=== PATIENT | female | born 1990 | race Hispanic/Latino ===

== ENCOUNTER 2021-01-04 16:57 | Emergency (ER) | payer OTHER ==
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
[2021-01-04 17:43] LABS: Urine Blood 3+ (Negative); Urine Glucose Negative (Negative); Urine Protein Negative (Negative); Urine Specific Gravity >=1.030 (1.005-1.030)
--- NOTE | 2021-01-04 17:45 | EDPHYS ---
Physician Documentation [facility] Name: Deysi Pompa Age: 30 yrs Sex: Female : 1990 Arrival Date: 01/04/2021 Time: 17:02 Bed 14 Private MD: ED Physician Filipe Dang HPI: 01/04 17:30 This 30 yrs old Female presents to ER via EMS with complaints of Vaginal nidia Bleeding. 17:30 The patient presents with a possible exposure to a sexually transmitted disease, nidia vaginal bleeding that is light. Onset: The symptoms/episode began/occurred 3 day(s) ago. Modifying factors: The symptoms are alleviated by nothing, the symptoms are aggravated by nothing. Associated signs and symptoms: Pertinent positives: vaginal bleeding. Severity of symptoms: At their worst the symptoms were mild, in the emergency department the symptoms are unchanged. The patient is sexually active, reportedly has a single partner. The patient has not experienced similar symptoms in the past. 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 Flu vaccine is not up to date. - Social history:: Smoking status: Patient reports the use of cigarette tobacco products, smokes one-half pack cigarettes per day. - Family history:: not pertinent. ROS: 17:30 Constitutional: Negative for fever, chills, and weight loss, Eyes: Negative for injury, nidia pain, redness, and discharge, ENT: Negative for injury, pain, and discharge, Neck: Negative for injury, pain, and swelling, Cardiovascular: Negative for chest pain, palpitations, and edema, Respiratory: Negative for shortness of breath, cough, wheezing, and pleuritic chest pain, Abdomen/GI: Negative for abdominal pain, nausea, vomiting, diarrhea, and constipation, Back: Negative for injury and pain, MS/Extremity: Negative for injury and deformity, Skin: Negative for injury, rash, and discoloration, Neuro: Negative for headache, weakness, numbness, tingling, and seizure, Psych: Negative for depression, anxiety, suicide ideation, homicidal ideation, and hallucinations, Allergy/Immunology: Negative for hives, rash, and allergies, Endocrine: Negative for neck swelling, polydipsia, polyuria, polyphagia, and marked weight changes, Hematologic/Lymphatic: Negative for swollen nodes, abnormal bleeding, and unusual bruising. 17:30 : Positive for pelvic pain, vaginal bleeding. Exam: 17:30 Constitutional: This is a well developed, well nourished patient who is awake, alert, nidia and in no acute distress. Head/Face: Normocephalic, atraumatic. Eyes: Pupils equal round and reactive to light, extra-ocular motions intact. Lids and lashes normal. Conjunctiva and sclera are non-icteric and not injected. Cornea within normal limits. Periorbital areas with no swelling, redness, or edema. ENT: Nares patent. No nasal discharge, no septal abnormalities noted. Tympanic membranes are normal and external auditory canals are clear. Oropharynx with no redness, swelling, or masses, exudates, or evidence of obstruction, uvula midline. Mucous membranes moist. Neck: Trachea midline, no thyromegaly or masses palpated, and no cervical lymphadenopathy. Supple, full range of motion without nuchal rigidity, or vertebral point tenderness. No Meningismus. Chest/axilla: Normal chest wall appearance and motion. Nontender with no deformity. No lesions are appreciated. Cardiovascular: Regular rate and rhythm with a normal S1 and S2. No gallops, murmurs, or rubs. Normal PMI, no JVD. No pulse deficits. Respiratory: Lungs have equal breath sounds bilaterally, clear to auscultation and percussion. No rales, rhonchi or wheezes noted. No increased work of breathing, no retractions or nasal flaring. Abdomen/GI: Soft, non-tender, with normal bowel sounds. No distension or tympany. No guarding or rebound. No evidence of tenderness throughout. Back: No spinal tenderness. No costovertebral tenderness. Full range of motion. Skin: Warm, dry with normal turgor. Normal color with no rashes, no lesions, and no evidence of cellulitis. MS/ Extremity: Pulses equal, no cyanosis. Neurovascular intact. Full, normal range of motion. Neuro: Awake and alert, GCS 15, oriented to person, place, time, and situation. Cranial nerves II-XII grossly intact. Motor strength 5/5 in all extremities. Sensory grossly intact. Cerebellar exam normal. Normal gait. Psych: Awake, alert, with orientation to person, place and time. Behavior, mood, and affect are within normal limits. Vital Signs: 17:03 Pulse 97; Resp 18; Temp 98.2(TE); Pulse Ox 97% on R/A; Weight 70.31 kg; Height 5 ft. 2 ca1 in. (157.48 cm); Pain 7/10; 17:05 BP 107 / 73; ca1 17:51 BP 111 / 86; Pulse 89; Resp 16 S; Pulse Ox 98% on R/A; ca1 17:03 Body Mass Index 28.35 (70.31 kg, 157.48 cm) ca1 MDM: 17:04 Patient medically screened. nidia 17:38 Differential diagnosis: dysmenorrhea, menometrorrhagia, ovarian cyst, pelvic nidia inflammatory disease, uterine fibroids, urinary tract infection. Data reviewed: vital signs, nurses notes, lab test result(s), urinalysis. Data interpreted: athletic monitor: not applicable for this patient encounter. rate is 97 beats/min, Pulse oximetry: on room air is 97 %. Counseling: I had a detailed discussion with the patient and/or guardian regarding: the historical points, exam findings, and any diagnostic results supporting the discharge/admit diagnosis, the need for outpatient follow up, for definitive care, an OB/Gyne specialist. 01/04 17:43 Order name: Urine Dipstick-Ancillary; Complete Time: 17:49 EDWI 01/04 17:46 Order name: Urine --Ancillary (enter results) eb 01/04 17:26 Order name: Urine Dipstick-Ancillary (obtain specimen); Complete Time: 17:29 nidia 01/04 17:26 Order name: Urine Test (obtain specimen); Complete Time: 17:43 [facility] Administered Medications: 17:31 Drug: Rocephin (cefTRIAXone) 1 grams Route: IM; Site: right gluteus; ca1 17:52 Follow up: Response: No adverse reaction ca1 17:35 Drug: Zithromax (azithromycin) 1 grams Route: PO; ca1 17:52 Follow up: Response: No adverse reaction ca1 17:37 Drug: metroNIDAZOLE 2 grams Route: PO; ca1 17:52 Follow up: Response: No adverse reaction ca1 17:47 Drug: [place] (HYDROcodone-acetaminophen) 10 mg-325 mg 1 tabs {Note: rass 0.} Route: PO; ca1 17:52 Follow up: Response: Medication administered at discharge.; RASS: Alert and Calm (0) ca1 Disposition: 01/04/21 17:44 Discharged to Home. Impression: Other abnormal uterine and vaginal bleeding - fear od std exposure. - Condition is Stable. - Discharge Instructions: Dysmenorrhea, Menorrhagia, Menorrhagia, [id number]. - Prescriptions for Ibuprofen 600 mg Oral Tablet - take 1 tablet by ORAL route every 6 hours As needed take with food; 20 tablet. Doxycycline Hyclate 100 mg Oral Tablet - take 1 tablet by ORAL route every 12 hours; 20 tablet. - Medication Reconciliation Form, Thank You Letter, Antibiotic Education, Prescription Opioid Use form. - Follow up: Maggie Mcgee MD; When: 2 - 3 days; Reason: Recheck today's complaints, Re-evaluation by your physician. - Problem is new. - Symptoms have improved. Signatures: Dispatcher [employer] EDWI Filipe Dang MD MD cha Acob, Cheryl RN RN ca1 Corrections: (The following items were deleted from the chart) 17:53 17:44 01/04/2021 17:44 Discharged to Home. Impression: Other abnormal uterine and ca1 vaginal bleeding - fear od std exposure. Condition is Stable. Forms are Medication Reconciliation Form, Thank You Letter, Antibiotic Education, Prescription Opioid Use. Follow up: Maggie Mcgee; When: 2 - 3 days; Reason: Recheck today's complaints, Re-evaluation by your physician. Problem is new. Symptoms have improved. nidia
--- NOTE | 2021-01-04 17:45 | ER ---
Nurse's Notes [facility] Name: Deysi Pompa Age: 30 yrs Sex: Female : 1990 Arrival Date: 01/04/2021 Time: 17:02 Bed 14 Private MD: Diagnosis: Other abnormal uterine and vaginal bleeding-fear od std exposure Presentation: 01/04 17:03 Chief complaint: EMS states: Vaginal bleeding started today. +tubal ligation. LMP ca1 12/06/2020. Reports suprapubic pain. Coronavirus screen: Client denies travel out of the [place] in the last 14 days. At this time, the client does not indicate any symptoms associated with coronavirus-19. Ebola Screen: Patient negative for fever greater than or equal to 101.5 degrees Fahrenheit, and additional compatible Ebola Virus Disease symptoms Patient denies exposure to infectious person. Patient denies travel to an Ebola-affected area in the 21 days before illness onset. No symptoms or risks identified at this time. Initial Sepsis Screen: Does the patient meet any 2 criteria? No. Patient's initial sepsis screen is negative. Does the patient have a suspected source of infection? No. Patient's initial sepsis screen is negative. Risk Assessment: Do you want to hurt yourself or someone else? Patient reports no desire to harm self or others. Onset of symptoms was January 04, 2021. 17:03 Method Of Arrival: EMS: [facility] ca1 17:03 Acuity: DERIC 3 ca1 Triage Assessment: 17:05 General: Appears in no apparent distress. comfortable, Behavior is calm, cooperative, ca1 appropriate for age. Pain: Complains of pain in suprapubic area Pain currently is 7 out of 10 on a pain scale. Is continuous. EENT: No signs and/or symptoms were reported regarding the EENT system. Neuro: Level of Consciousness is awake, alert, obeys commands, Oriented to person, place, time, situation. Cardiovascular: Heart tones S1 S2 present Capillary refill < 3 seconds Patient's skin is warm and dry. Respiratory: Airway is patent Respiratory effort is even, unlabored, Respiratory pattern is regular, symmetrical, Breath sounds are clear bilaterally. GI: Abdomen is flat, non-distended, Bowel sounds present X 4 quads. Abd is soft and non tender X 4 quads. Reports Patient currently denies. : Reports vaginal bleeding that is bright red, moderate flow, since this morning. Derm: Skin is intact, is healthy with good turgor, Skin is pink, warm \T\ dry. Musculoskeletal: Circulation, motion, and sensation intact. Capillary refill < 3 seconds. 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 Flu vaccine is not up to date. - Social history:: Smoking status: Patient reports the use of cigarette tobacco products, smokes one-half pack cigarettes per day. - Family history:: not pertinent. Screenin:07 Abuse screen: Denies threats or abuse. Denies injuries from another. Nutritional ca1 screening: No deficits noted. Tuberculosis screening: No symptoms or risk factors identified. Fall Risk IV access (20 points). Assessment: 17:07 Reassessment: see triage notes. ca1 17:51 Reassessment: Patient appears in no apparent distress at this time. Patient is alert, ca1 oriented x 3, equal unlabored respirations, skin warm/dry/pink. Vital Signs: 17:03 Pulse 97; Resp 18; Temp 98.2(TE); Pulse Ox 97% on R/A; Weight 70.31 kg; Height 5 ft. 2 ca1 in. (157.48 cm); Pain 7/10; 17:05 BP 107 / 73; ca1 17:51 BP 111 / 86; Pulse 89; Resp 16 S; Pulse Ox 98% on R/A; ca1 17:03 Body Mass Index 28.35 (70.31 kg, 157.48 cm) ca1 ED Course: 17:02 Patient arrived in ED. ca1 17:04 Filipe Dang MD is Attending Physician. [facility] 17:05 Triage completed. ca1 17:05 Arm band placed on right wrist. ca1 17:07 Patient has correct armband on for positive identification. Placed in gown. Bed in low ca1 position. Call light in reach. Side rails up X2. Pulse ox on. NIBP on. Warm blanket given. 17:29 Kirti Collazo, RN is Primary Nurse. ca1 17:40 Maggie Mcgee MD is Referral Physician. [facility] 17:52 No provider procedures requiring assistance completed. Patient did not have IV access ca1 during this emergency room visit. Administered Medications: 17:31 Drug: Rocephin (cefTRIAXone) 1 grams Route: IM; Site: right gluteus; ca1 17:52 Follow up: Response: No adverse reaction ca1 17:35 Drug: Zithromax (azithromycin) 1 grams Route: PO; ca1 17:52 Follow up: Response: No adverse reaction ca1 17:37 Drug: metroNIDAZOLE 2 grams Route: PO; ca1 17:52 Follow up: Response: No adverse reaction ca1 17:47 Drug: [place] (HYDROcodone-acetaminophen) 10 mg-325 mg 1 tabs {Note: rass 0.} Route: PO; ca1 17:52 Follow up: Response: Medication administered at discharge.; RASS: Alert and Calm (0) ca1 Outcome: 17:44 Discharge ordered by . [facility] 17:52 Discharged to home ambulatory, with family. ca1 17:52 Condition: stable 17:52 Discharge instructions given to patient, Instructed on discharge instructions, follow up and referral plans. medication usage, Demonstrated understanding of instructions, follow-up care, medications, Prescriptions given X 2. 17:53 Patient left the ED. ca1 Signatures: Filipe Dang MD MD cha Acob, Cheryl, RN RN ca1
[2021-01-04] MEDS ORDERED: metroNIDAZOLE 500 MG TABLET ONE (17:50)
[2021-01-04] MEDS ORDERED: AZITHROMYCIN 250 MG TAB ONE (17:50)
[2021-01-04] MEDS ORDERED: CEFTRIAXONE 1000 MG/VIAL ONE (17:50)
[2021-01-04] MEDS ORDERED: WATER FOR INJ,STERILE 10 ML ONE (17:51)
[2021-01-04] MEDS ORDERED: HYDROCODONE/APAP 10/325 TAB ONE (18:04)
[2021-01-04 18:05] VITALS: BP 111/86; TEMP 98.2; O2SAT 98
== END 2021-01-04 17:53 | disposition home or self-care (01) ==
LOC: ER 16:57
DX: N93.9 Abnormal uterine and vaginal bleeding, unspecified (principal); Z20.2 Contact with and (suspected) exposure to infections with a predominantly sexual mode of transmission; F17.210 Nicotine dependence, cigarettes, uncomplicated
CPT/HCPCS: 81003; 81025; 96372; 99284